=== PATIENT | male | born 1945 | race Caucasian/White ===

== ENCOUNTER 2022-12-05 22:11 | Emergency (ER) | payer OTHER ==
[~2022-12-05] VITALS: Ht 177.8 cm; Wt 68.0 kg
[2022-12-05] MEDS ORDERED: ZESTORETIC 10-1 EACH PO (22:46)
== END 2022-12-06 03:45 | disposition home or self-care (01) ==
LOC: ER 22:11
DX: R55 Syncope and collapse (principal); S01.80XA Unspecified open wound of other part of head, initial encounter; X58.XXXA Exposure to other specified factors, initial encounter; Y93.89 Activity, other specified; Y92.89 Other specified places as the place of occurrence of the external cause; Y99.8 Other external cause status; R53.81 Other malaise; I10 Essential (primary) hypertension